=== PATIENT | female | born 1955 | race Caucasian/White ===

== ENCOUNTER 2022-10-26 10:09 | Emergency (ER) | payer MEDICARE ==
[2022-10-26] MEDS ORDERED: Iopamidol 370 76% 100 ML VIAL ONE (10:32)
[2022-10-26 10:59] LABS: #Basophils 0.1 10x3/uL (0.0-0.2); #Eosinphils 0.5 10x3/uL (0.0-0.5); #Monocytes 0.7 10x3/uL (0.0-1.1); #Neutrophils 3.9 10x3/uL (1.5-8.4); %Eosinophils 6.3 % (0.0-6.0); %Lymphocytes 33.1 % (18.0-47.0); %Monocytes 9.3 % (0.0-10.0); %Neutrophils 49.8 % (40.0-75.0); Hemoglobin 14.4 g/dL (12.0-15.5); Mean Corpuscular Hemoglobin 31.6 pg (27.0-33.0); Mean Corpuscular Volume 95.6 fl (81.6-98.3); Mean Platelet Volume 9.1 fl (7.4-10.4); Platelet Count 377 10x3/uL (150-450); RBC Distribution Width 13.3 % (11.5-14.5); Red Blood Cell (RBC) Count 4.56 10x6/uL (3.90-5.03); White Blood Cell (WBC) Count 7.8 10x3/uL (3.5-10.5)
[2022-10-26 11:00] LABS: ALT (SGPT) 21 U/L (8-55); AST (SGOT) 21 U/L (5-34); Albumin 4.5 g/dL (3.4-4.8); Alkaline Phosphatase 56 U/L (40-110); Anion Gap 15 mmol/L (10-20); BUN (Urea Nitrogen) 15 mg/dL (9.8-20.1); Bilirubin, Total 0.4 mg/dL (0.2-1.2); CK (CPK) 58 U/L (29-168); Calc. Creatinine Clearance 0 mL/min (70-130); Calcium 9.8 mg/dL (7.8-10.44); Carbon Dioxide 25 mmol/L (23-31); Chloride 106 mmol/L (98-107); Estimated GFR 82; Globulin 2.8 g/dL (2.4-3.5); Glucose 89 mg/dL (80-115); Potassium 4.3 mmol/L (3.5-5.1); Protein, Total 7.3 g/dL (5.8-8.1); Sodium 142 mmol/L (136-145)
== END 2022-10-26 12:28 | disposition home or self-care (01) ==
LOC: CSHERS 10:09
DX: R07.89 Other chest pain (principal); R06.02 Shortness of breath; I25.10 Atherosclerotic heart disease of native coronary artery without angina pectoris; Z87.891 Personal history of nicotine dependence
CPT/HCPCS: 71045; 71275; 80053; 82550; 84484; 85025; 93005

== ENCOUNTER 2023-06-02 10:11 | Outpatient (CLI) | payer MEDICARE | END 2023-06-02 10:12 | disposition home or self-care (01) | LOC: CSHMAMMO 10:11 | PROVIDERS: ATTEND Internal Medicine | DX: Z12.31 Encounter for screening mammogram for malignant neoplasm of breast (principal); Z13.820 Encounter for screening for osteoporosis; M81.0 Age-related osteoporosis without current pathological fracture; M85.851 Other specified disorders of bone density and structure, right thigh; M85.852 Other specified disorders of bone density and structure, left thigh; Z78.0 Asymptomatic menopausal state; Z91.89 Other specified personal risk factors, not elsewhere classified | CPT/HCPCS: 77063; 77067; 77080 ==

== ENCOUNTER 2023-09-20 14:19 | Outpatient (CLI) | payer MEDICARE | END 2023-09-20 14:20 | disposition home or self-care (01) | LOC: CSHRAD 14:19 | PROVIDERS: ATTEND Internal Medicine | DX: M79.671 Pain in right foot (principal) ==

== ENCOUNTER 2024-06-07 12:32 | Outpatient (CLI) | payer MEDICARE | END 2024-06-07 12:33 | disposition home or self-care (01) | LOC: CSHCT 12:32 | PROVIDERS: ATTEND Internal Medicine | DX: Z12.2 Encounter for screening for malignant neoplasm of respiratory organs (principal); Z87.891 Personal history of nicotine dependence | CPT/HCPCS: 71271 ==

== ENCOUNTER 2024-06-07 13:07 | Outpatient (CLI) | payer MEDICARE | END 2024-06-07 13:08 | disposition home or self-care (01) | LOC: CSHMAMMO 13:07 | PROVIDERS: ATTEND Internal Medicine | DX: Z12.31 Encounter for screening mammogram for malignant neoplasm of breast (principal); M81.0 Age-related osteoporosis without current pathological fracture; M85.851 Other specified disorders of bone density and structure, right thigh; Z91.89 Other specified personal risk factors, not elsewhere classified | CPT/HCPCS: 77063; 77067; 77080 ==

== ENCOUNTER 2025-06-08 12:26 | Outpatient (CLI) | payer MEDICARE | END 2025-06-08 12:27 | disposition home or self-care (01) | LOC: CSHCT 12:26 | PROVIDERS: ATTEND Internal Medicine | DX: Z12.2 Encounter for screening for malignant neoplasm of respiratory organs (principal); Z87.891 Personal history of nicotine dependence; R91.1 Solitary pulmonary nodule | CPT/HCPCS: 71271 ==